=== PATIENT | male | born 1955 | race Hispanic/Latino ===

== ENCOUNTER → 2016-12-31 | Outpatient (CLI) | payer OTHER | END | disposition home or self-care (01) | LOC: GMAB 10:51 | PROVIDERS: ATTEND Family Medicine | DX: I86.1 Scrotal varices (principal); E29.9 Testicular dysfunction, unspecified ==

== ENCOUNTER → 2017-07-09 | Outpatient (CLI) | payer BC, OTHER ==
--- NOTE | 2017-07-09 11:47 | US ---
EXAM DESCRIPTION: Renal CLINICAL HISTORY: RENAL DISORDER . Renal insufficiency. COMPARISON: None. TECHNIQUE: Routine sonographic images of the kidneys and urinary bladder FINDINGS: Right kidney: The right kidney measures 10.4 x 5.1 x 4.5 cm. Normal cortical thickness and echogenicity. There is no cyst, mass, or hydronephrosis. Left kidney: The left kidney measures 10.3 x 5.4 x 5.6 cm. Normal cortical thickness and echogenicity. There is a 0.4 cm calculus in the midpole of the left kidney. No hydronephrosis. IMPRESSION: 1. Nonobstructing left nephrolithiasis. Electronically signed by: Luis Rose MD 07/09/2017 11:46 AM [facility]
== END | disposition home or self-care (01) ==
LOC: US 09:50
PROVIDERS: ATTEND Internal Medicine
DX: N28.9 Disorder of kidney and ureter, unspecified (principal)

== ENCOUNTER → 2018-09-22 | Outpatient (CLI) | payer BC ==
--- NOTE | 2018-09-22 15:45 | MRI ---
EXAM DESCRIPTION: Lumbar Spine w/o Contrast : Magnetic Resonance Imaging. CLINICAL HISTORY: LOW BACK PAIN COMPARISON: Lumbar radiographs 08/03/2018. TECHNIQUE: Multiplanar, multiple standard sequences, non contrast MRI, lumbar spine. FINDINGS: L5-S1: Disc desiccation with disc space maintained. 2 mm grade 1 retrolisthesis. Mild canal narrowing. Bilateral facet arthrosis. Bilateral posterior cement fusion with L4 posterior elements. Moderate bilateral foraminal narrowing with disc bulge laterally abutting the exiting L5 nerve roots in the bilateral foramina. L4-L5: Partially fused disc space and partially ossified. Bilateral facet joints fused. Partial left laminectomy with decompression, mild canal narrowing remains. Bilateral narrowing of the subarticular recesses more on the left than the right. Bilateral foramina are patent. L3-L4: Disc desiccation with disc space maintained. Minimal anterior bulging. Small Modic type II endplate reactive change L3. Tiny posterior bulging. Bilateral hypertrophic facets with ligamentous impressing on the posterior thecal sac. AP canal diameter 7 mm. Mild to moderate right foraminal narrowing and moderate left foraminal narrowing. L2-L3: Disc desiccation with disc space maintained. Grade 1 anterolisthesis 3 mm. Deformity of the bilateral L3 pars interarticulares. Minimal anterior bulging and endplate ridging. Marked narrowing of the transverse diameter of the canal with hypertrophic facet arthrosis and ligament hypertrophy impressing the posterior thecal sac. Suggestion of a 4 mm synovial cyst on the left facet also impressing on the posterior thecal sac. AP canal diameter 6 mm in the midline but 4 mm anterior to the synovial cyst. Bilateral mild to moderate foraminal narrowing. L1-L2: Normal signal in the disc with disc space maintained. Flavum ligament hypertrophy and minimal facet arthrosis and hypertrophy with mild canal narrowing. Bilateral mild foraminal narrowing more on the right with minimal hypertrophy of the facet. T12-L1: Normal signal in the disc with disc space maintained. Minimal hypertrophy of the flavum ligaments. Facets are negative. Canal and bilateral foramina are patent. Slight kyphosis L2-S1. Paravertebral soft tissues paraspinal muscle atrophy and postsurgical changes more at the level of previous surgery on the left at L4 as well as at the fusion levels.. Normal marrow signal in the remaining vertebral bodies and the posterior elements. Vertebral bodies are not compressed at any level. IMPRESSION: 1. Grade 1 anterolisthesis at L2-3 with disc desiccation. Multifactorial severe canal stenosis more to the left of midline with suggestion of a small synovial cyst from the left hypertrophied facet. Bilateral mild to moderate foraminal narrowing. Deformity in the bilateral L3 pars interarticulares may indicate spondylolysis. 2. Anterior moderate spondylosis at L3-4. Tiny posterior disc bulge. Hypertrophic posterior facets and ligaments resulting in mild to moderate canal stenosis. Moderate left foraminal narrowing. 3. 2 mm grade 1 retrolisthesis at L5-S1. Posterior and lateral elements fused superiorly with L4 posterior elements. Disc bulge into the bilateral foramina abutting the exiting L5 nerve roots. 4. Partial left L4 laminectomy with decompression. Fusion of the posterior L4-L5 facets. Bilateral mild narrowing of the subarticular recesses. Partially ossified and fused L4-L5 disc space. Electronically signed by: Yousif Elizalde MD 09/22/2018 3:41 PM CDT
== END ==
LOC: MRI 11:00
PROVIDERS: ATTEND Family Medicine
DX: M51.36 Other intervertebral disc degeneration, lumbar region (principal); M43.16 Spondylolisthesis, lumbar region; M47.896 Other spondylosis, lumbar region; Z98.1 Arthrodesis status

== ENCOUNTER → 2019-05-04 | Outpatient (CLI) | payer BC | LOC: GMAE 12:31 | PROVIDERS: ATTEND Family Medicine | DX: E29.9 Testicular dysfunction, unspecified (principal); E78.5 Hyperlipidemia, unspecified; Z79.899 Other long term (current) drug therapy ==

== ENCOUNTER → 2020-04-11 | Outpatient (CLI) | payer BC | LOC: GMAE 10:39 | PROVIDERS: ATTEND Family Medicine | DX: D50.9 Iron deficiency anemia, unspecified (principal) ==

== ENCOUNTER → 2020-07-19 | Outpatient (CLI) | payer BC | LOC: GMAE 10:52 | PROVIDERS: ATTEND Family Medicine | DX: Z00.00 Encounter for general adult medical examination without abnormal findings (principal) ==